=== PATIENT | female | born 1985 | race Caucasian/White ===

== ENCOUNTER 2017-03-04 18:08 | Emergency (ER) | payer SELFPAY ==
[2017-03-04 18:18] VITALS: BP 107/65; PULSE 69; RESP 16; TEMP 99.7; O2SAT 97
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
[2017-03-04] MEDS ORDERED: HYDROCODONE/APAP 5/325 TAB PO ONE (18:33)
== END 2017-03-04 19:05 | disposition home or self-care (01) ==
LOC: CED 18:08
DX: S49.91XA Unspecified injury of right shoulder and upper arm, initial encounter (principal); V86.59XA Driver of other special all-terrain or other off-road motor vehicle injured in nontraffic accident, initial encounter; Y99.8 Other external cause status; Y93.89 Activity, other specified
CPT/HCPCS: 73030-PO; A4565

== ENCOUNTER 2017-03-27 12:39 | Emergency (ER) | payer SELFPAY ==
[2017-03-27 12:50] VITALS: RESP 16; TEMP 98.2; O2SAT 97
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
[2017-03-27] MEDS ORDERED: OFLOXACIN 0.3% SOLN PREPACK OPHT.BTL TAKEHOME ONE (13:18)
[2017-03-27] MEDS ORDERED: OFLOXACIN 0.3% 5ML OPHT DROPS EACHEYE ONE (13:18)
[2017-03-27 14:05] VITALS: BP 115/80; PULSE 90
== END 2017-03-27 13:50 | disposition home or self-care (01) ==
LOC: CED 12:39
DX: H18.821 Corneal disorder due to contact lens, right eye (principal)

== ENCOUNTER 2017-04-29 18:55 | Emergency (ER) | payer SELFPAY ==
[2017-04-29 19:18] VITALS: RESP 20; O2SAT 97
--- NOTE | 2017-04-29 19:28 | EDPHY ---
H & P Stated Complaint: right breast swelling Time Seen by Provider: 04/29/17 19:05 HPI/ROS: CHIEF COMPLAINT: Right shoulder and breast pain History by patient HISTORY OF PRESENT ILLNESS: 32-year-old otherwise healthy woman complains of 1 week of right shoulder pain and right breast pain and swelling. Patient states symptoms began in her right shoulder blade and she describes it as a sharp feeling in front of her shoulder blade inside her chest. It is not pleuritic. She then noticed for the past week that her right breast seems to be swelling. She says it hurts to move her arm around sometimes. She has also had some URI symptoms and had a low-grade fever at home which she associates with URI symptoms and not with the shoulder and breast pain. There has been no nipple discharge. She has felt no masses, just generalized swelling. She has not breast fed for several years. She had hers tubes tied and does not think she is . She denies any trauma to the area. She denies any new exercise or activity that might have provoked this. She said began 1 morning when she woke up but the shoulder pain. She has tried Tylenol and ibuprofen with minimal relief. She has a history of a cyst on her left breast but says that that was not painful. REVIEW OF SYSTEMS: As in HPI, and all other systems reviewed and are negative Source: Patient - Personal History LMP (Females 10-55): 15-21 Days Ago Current Tetanus/Diphtheria Vaccine: Yes Current Tetanus Diphtheria and Acellular Pertussis (TDAP): Yes Tetanus Vaccine Date: 2013 - Medical/Surgical History Hx Asthma: No Hx Chronic Respiratory Disease: No Hx Diabetes: No Hx Cardiac Disease: No Hx Renal Disease: No Hx Cirrhosis: No Hx Alcoholism: No Hx HIV/AIDS: No Hx Splenectomy or Spleen Trauma: No Other PMH: choly/appy/tubal ligation - Social History Smoking Status: Never smoked - Physical Exam Exam: General Appearance: Alert, depressed appeareding. Eyes: Pupils equal and round, extraocular movements intact, no pallor or injection. ENT, Mouth: Mucous membranes moist. Respiratory: Normal, effort, lungs are clear to auscultation. No wheezes, rales or rhonchi. Cardiovascular: Regular rate and rhythm. S1, S2, no murmurs, gallops or rubs appreciated Breasts: No obvious asymmetry, masses or tenderness, no discharge, no axillary adenopathy Gastrointestinal: Abdomen is soft and nontender, no masses, bowel sounds normal. Back: No CVA tenderness, no bony tenderness, neck with full range of motion Neurological: Awake, alert and oriented x 3, no pronator drift, normal gait, no pronator drift Skin: Warm and dry, positive red, blanching macular patches on bilateral breasts and abdominal wall. Musculoskeletal: No deformities or tenderness. Extremitie:s full range of motion of right shoulder without pain, mild tenderness to palpation on the right scapula with some palpable muscle spasm Psychiatric: Patient has flat affect, there is no agitation. Constitutional: Initial Vital Signs Temperature (C) 37.6 C 04/29/17 19:14 Heart Rate 84 04/29/17 19:14 Respiratory Rate 20 04/29/17 19:14 Blood Pressure 133/82 H 04/29/17 19:14 O2 Sat (%) 97 04/29/17 19:14 O2 Delivery Mode Room Air Allergies/Adverse Reactions: codeine Allergy (Verified 04/29/17 19:13) promethazine HCl [From Phenergan] Allergy (Verified 04/29/17 19:13) Medical Decision Making - Diagnostics Imaging: I viewed and interpreted images myself ED Course/Re-evaluation: 32-year-old woman presents complaining of right shoulder and right breast pain and swelling. On exam there is no evidence of cellulitis or traumatic injury. Chest x-ray shows nothing acute. Patient is not . Patient states she is safe at home and denies any current social stressors. She has a cousin with a history of breast cancer but no 1st degree relatives. Because the patient's symptoms are unclear at this point but I am not finding any significant systemic toxicity or serious abnormality. Patient was given reassurance about this. I do recommend the patient follow up with a mammogram since she feels that there is an asymmetry to her breast which is new. I discussed this with the patient who understands and is agreeable to this plan. Departure - Departure Disposition: Home, Routine, Self-Care Clinical Impression: Breast pain, right Shoulder pain, right Qualifiers: Chronicity: acute Qualified Code(s): M25.511 - Pain in right shoulder Condition: Good Instructions: Shoulder Pain (ED) Additional Instructions: You were seen by Dr. Radha Garcia today. The cause of your symptoms today are unclear. The symptoms will most likely resolve on their own. I do recommend you get a mammogram because of your concern about asymmetrical swelling of the breast. You may call [facility] to schedule the mammogram [phone] Return for any worsening or new concerns. Referrals: NONE *PRIMARY CARE P,. [Primary Care Provider] - As per Instructions
[2017-04-29 20:17] VITALS: BP 128/72; PULSE 74; TEMP 99.5
== END 2017-04-29 20:05 | disposition home or self-care (01) ==
LOC: CED 18:55
DX: M25.511 Pain in right shoulder (principal); N64.4 Mastodynia
CPT/HCPCS: 71020-PO; 81025-PO